=== PATIENT | female | born 2005 | race Two or more races ===

== ENCOUNTER 2025-01-24 09:33 | Emergency (ER) | payer SELFPAY ==
[2025-01-24] MEDS: Ketorolac 30 MG/ML SDV IM ONE (10:50)
[2025-01-24] MEDS: Acetaminophen/HYDROcodone 325-5 MG Tab PO ONE (10:50)
== END 2025-01-24 11:48 | disposition home or self-care (01) ==
LOC: MW.ED 09:33
DX: S60.512A Abrasion of left hand, initial encounter (principal); W22.8XXA Striking against or struck by other objects, initial encounter
CPT/HCPCS: 73110; 73130; 96372; 99283; A9270; J1885